=== PATIENT | male | born 2000 | race Two or more races ===

== ENCOUNTER 2024-03-10 17:23 | Inpatient (IN) | payer MEDICAID ==
[~2024-03-10] VITALS: Ht 172.7 cm; Wt 61.3 kg
[2024-03-10] MEDS ORDERED: PALI39DI IM (17:33)
[2024-03-10] MEDS ORDERED: PALI1.5T7 PO (17:33)
[2024-03-10] MEDS ORDERED: RISP0.5T80 PO (17:33)
[2024-03-10] MEDS ORDERED: OXCA300T70 PO (17:33)
[2024-03-10] MEDS ORDERED: MIRT-89 PO (17:33)
[2024-03-10 18:30] LABS: BASOPHILS % (AUTO) 0.4 % (0.0-2.0); EOSINOPHILS % (AUTO) 0.6 % (1.0-6.0); HEMATOCRIT 45.2 % (41-53); HEMOGLOBIN 14.9 g/dL (13.5-17.5); LYMPHOCYTES # (AUTO) 2.1 K/uL (1.0-4.8); MEAN CORPUSCULAR VOLUME 91 fL (80-100); MONOCYTES # (AUTO) 0.7 K/uL (0.1-1.0); MONOCYTES % (AUTO) 8.8 % (2.0-9.0); NEUTROPHILS # (AUTO) 4.9 K/uL (1.8-7.7); NEUTROPHILS % (AUTO) 63.2 % (40.0-70.0); PLATELET COUNT (AUTO) 168 K/uL (150-450); RED BLOOD CELL COUNT(AUTO) 4.97 MIL/uL (4.50-5.90); RED CELL DISTRIBUTION WIDTH 13.5 % (11.5-14.5); WHITE BLOOD COUNT (AUTO) 7.8 K/uL (4.5-11.0)
[2024-03-10 18:39] LABS: ALCOHOL, URINE DRUG SCREEN NEGATIVE (NEGATIVE); AMPHET/METH SCREEN,URINE NEGATIVE (NEGATIVE); BARBITURATE SCREEN, URINE NEGATIVE (NEGATIVE); BENZODIAZEPINES SCREEN,URINE NEGATIVE (NEGATIVE); CANNABINOID SCREEN,URINE POSITIVE (NEGATIVE); COCAINE SCREEN,URINE NEGATIVE (NEGATIVE); METHADONE SCREEN, URINE NEGATIVE (NEGATIVE); OPIATE SCREEN,URINE NEGATIVE (NEGATIVE); PHENCYCLIDINE SCREEN,URINE NEGATIVE (NEGATIVE)
[2024-03-10 18:42] LABS: ANION GAP 12 mmol/L (8-16); CALCIUM, TOTAL 8.9 mg/dL (8.8-10.5); CARBON DIOXIDE 26 mmol/L (22-29); CHLORIDE 103 mmol/L (98-107); GLOMERULAR FILTR. RATE CALC > 60 mL/min (>60); GLUCOSE,RANDOM 89 mg/dL (70-110); POTASSIUM 3.9 mmol/L (3.5-5.1); SODIUM SERUM 141 mmol/L (136-145); UREA NITROGEN, BLOOD 13 mg/dL (7-18)
[2024-03-10 18:45] LABS: ALCOHOL, BLOOD (SERUM) < 3 mg/dL (0-10)
[2024-03-11 04:09] LABS: COVID AG,FIA SOURCE NASAL SWAB
[2024-03-11 04:44] LABS: SARS-COV2 (COVID) ANTIGEN,FIA Negative (Negative)
[2024-03-11] MEDS ORDERED: LORA-1001 PO (06:59)
[2024-03-11] MEDS: BENZONATATE 100 MG CAPSULE PO ONE (09:29)
[2024-03-11] MEDS: NICOTINE 7 MG/24 HOUR PATCH TD ONE (16:20)
[2024-03-11] MEDS: LORazepam 2 MG TABLET PO PRN (16:28)
[2024-03-11 18:18] VITALS: O2SAT 98
[2024-03-12 02:32] VITALS: BP 116/62; PULSE 72; RESP 18; TEMP 97.8
[2024-03-12 08:00] VITALS: BP 120/59; PULSE 100; RESP 18; TEMP 98
[2024-03-12] MEDS ORDERED: BACITRACIN 28 GM OINTMENT TP PRN (09:15)
[2024-03-12] MEDS ORDERED: PETROLATUM,WHITE 28 GM JELLY TP PRN (09:15)
[2024-03-12] MEDS ORDERED: OMEPRAZOLE 20 MG CAPSULE PO PRN (09:15)
[2024-03-12] MEDS ORDERED: LOPERAMIDE HCL 2 MG CAPSULE PO PRN (09:15)
[2024-03-12] MEDS ORDERED: ALBUTEROL SULFATE HFA 90 MCG/PUFF 8 GM INHALER IH PRN (09:15)
[2024-03-12] MEDS ORDERED: ACETAMINOPHEN 325 MG TABLET PO PRN (09:15)
[2024-03-12] MEDS ORDERED: IBUPROFEN 600 MG TABLET PO PRN (09:15)
[2024-03-12] MEDS ORDERED: MAG HYDROX/ALUMINUM HYD/SIMETH ES 30 ML SUSPENSION UDCUP PO PRN (09:15)
[2024-03-12] MEDS ORDERED: CloNIDine HCL 0.1 MG TABLET PO PRN (09:15)
[2024-03-12] MEDS ORDERED: MAGNESIUM HYDROXIDE SUSPENSION 30 ML UDCUP PO PRN (09:15)
[2024-03-12] MEDS ORDERED: ONDANSETRON 4 MG TABLET PO PRN (09:15)
[2024-03-12] MEDS ORDERED: BENZOCAINE/MENTHOL LOZENGE PO PRN (09:15)
[2024-03-12] MEDS ORDERED: DOCUSATE SODIUM 100 MG CAPSULE PO PRN (09:15)
[2024-03-12] MEDS: NICOTINE 21 MG/24 HOUR PATCH TD PRN (10:27)
[2024-03-12] MEDS: HALOPERIDOL 5 MG TABLET PO PRN (12:24)
[2024-03-12 20:07] VITALS: BP 133/75; PULSE 98; RESP 18; TEMP 97.8; O2SAT 98
[2024-03-13 08:15] VITALS: BP 143/87; PULSE 87; RESP 18; TEMP 97.7; O2SAT 98
[2024-03-13] MEDS: PALIPERIDONE 6 MG ER TABLET PO SCH (20:04)
[2024-03-13] MEDS: ZOLPIDEM TARTRATE 10 MG TABLET PO PRN (21:23)
[2024-03-14 08:15] VITALS: BP 111/60; PULSE 97; RESP 17; TEMP 97.6; O2SAT 97
[2024-03-14 08:50] LABS: FREE T4 (FREE THYROXINE) 1.15 ng/dL (0.76-1.46); THYROID STIMULATING HORMONE 2.06 uIU/mL (0.36-3.74)
[2024-03-14 18:30] VITALS: BP 136/72; PULSE 90; RESP 16; TEMP 97.8; O2SAT 98
[2024-03-14 20:50] VITALS: BP 133/83; PULSE 83; RESP 18; TEMP 97.7; O2SAT 98
[2024-03-15] MEDS: PALIPERIDONE PALMITATE 234 MG/1.5 ML SYRINGE IM ONE (06:31)
[2024-03-15 08:01] VITALS: BP 113/70; PULSE 92; RESP 18; TEMP 97.8; O2SAT 97
[2024-03-15] MEDS: LORazepam 2 MG/ML VIAL IM ONE (18:22)
[2024-03-15] MEDS: DiphenhydrAMINE HCL 50 MG/ML VIAL IM ONE (18:22)
[2024-03-15] MEDS: HALOPERIDOL LACTATE 5 MG/ML VIAL IM ONE (18:23)
[2024-03-15 20:20] VITALS: BP 121/74; PULSE 88; RESP 18; TEMP 97.6
[2024-03-16 11:42] VITALS: BP 120/72; PULSE 68; RESP 16; TEMP 97.5; O2SAT 100
[2024-03-16 20:00] VITALS: BP 129/83; PULSE 84; RESP 16; TEMP 97.3; O2SAT 100
[2024-03-16] MEDS: PALIPERIDONE 9 MG ER TABLET PO SCH (21:10)
[2024-03-17 08:04] VITALS: BP 128/68; PULSE 91; RESP 16; TEMP 97.8; O2SAT 98
[2024-03-17] MEDS ORDERED: PALI9TAB15 PO (17:29)
== END 2024-03-17 19:06 | disposition home or self-care (01) | DRG 750 ==
LOC: EMS 17:23 → EDBEDREQSVC 03-11 02:32 → B3A 03-12 00:09
PROVIDERS: ADMIT Psychiatry & Neurology Psychiatry; ATTEND Psychiatry & Neurology Psychiatry
DX: F20.0 Paranoid schizophrenia (principal); F12.90 Cannabis use, unspecified, uncomplicated; F14.10 Cocaine abuse, uncomplicated; Z20.822 Contact with and (suspected) exposure to COVID-19; F32.A Depression, unspecified; K59.00 Constipation, unspecified; G47.00 Insomnia, unspecified; Z87.891 Personal history of nicotine dependence
CPT/HCPCS: 80048; 80061; 80307; 84439; 84443; 85025; 87481; 99285; G0480; J1200; J1630; J2060; 36415-L1; 36415-TC; J2426; Z7502; Z7610

== ENCOUNTER 2024-04-06 09:07 | Inpatient (IN) | payer MEDICAID ==
[~2024-04-06] VITALS: Ht 172.7 cm; Wt 71.3 kg
[~2024-04-06 09:07] MED LIST: PALI9TAB15 PO
[2024-04-06] MEDS ORDERED: ZOLPIDEM TARTRATE 10 MG TABLET PO PRN (10:00)
[2024-04-06] MEDS ORDERED: LORazepam 2 MG/ML VIAL ONE (10:23)
[2024-04-06] MEDS ORDERED: HALOPERIDOL LACTATE 5 MG/ML VIAL ONE (10:24)
[2024-04-06] MEDS ORDERED: DiphenhydrAMINE HCL 50 MG/ML VIAL ONE (10:24)
[2024-04-06 10:50] LABS: GLUCOMETER DEV NAME(LOC) POC.BV; POC SARS-COV2 AG, FIA NEGATIVE (NEGATIVE)
[2024-04-06] MEDS ORDERED: LITH300C3 PO (10:58)
[2024-04-06] MEDS ORDERED: DIVA-112 PO (10:58)
[2024-04-06 11:10] VITALS: BP 108/74; PULSE 85; RESP 17; TEMP 98.4; O2SAT 96
[2024-04-06] MEDS: LORazepam 2 MG/ML VIAL IM ONE (11:13)
[2024-04-06] MEDS: DiphenhydrAMINE HCL 50 MG/ML VIAL IM ONE (11:16)
[2024-04-06] MEDS: HALOPERIDOL LACTATE 5 MG/ML VIAL IM ONE (11:16)
[2024-04-06 14:10] VITALS: RESP 18
[2024-04-06] MEDS: NICOTINE 14 MG/24 HOUR PATCH TD SCH (20:38)
[2024-04-07] MEDS: LORazepam 2 MG TABLET PO PRN (06:48)
[2024-04-07 08:48] VITALS: BP 110/72; PULSE 92; RESP 17; TEMP 97.7; O2SAT 100
[2024-04-07 09:09] LABS: BASOPHILS % (AUTO) 0.5 % (0.0-2.0); HEMATOCRIT 44.2 % (41-53); HEMOGLOBIN 14.9 g/dL (13.5-17.5); LYMPHOCYTES # (AUTO) 1.9 K/uL (1.0-4.8); LYMPHOCYTES % (AUTO) 29.8 % (22.0-44.0); MEAN CORPUSCULAR HEMOGLOBIN 30.8 pg (26.0-34.0); MEAN CORPUSCULAR HGB CONC 33.7 G/dL (31.0-37.0); MEAN CORPUSCULAR VOLUME 91 fL (80-100); MONOCYTES # (AUTO) 0.5 K/uL (0.1-1.0); MONOCYTES % (AUTO) 7.9 % (2.0-9.0); NEUTROPHILS # (AUTO) 3.8 K/uL (1.8-7.7); NEUTROPHILS % (AUTO) 59.8 % (40.0-70.0); PLATELET COUNT (AUTO) 177 K/uL (150-450); RED BLOOD CELL COUNT(AUTO) 4.84 MIL/uL (4.50-5.90); RED CELL DISTRIBUTION WIDTH 13.4 % (11.5-14.5); WHITE BLOOD COUNT (AUTO) 6.4 K/uL (4.5-11.0)
[2024-04-07 09:24] LABS: HEMOGLOBIN A1C 5.1 % (3.8-5.6)
[2024-04-07 09:27] LABS: LITHIUM 0.22 mmol/L (0.60-1.20)
[2024-04-07 09:28] LABS: ALCOHOL, BLOOD (SERUM) < 3 mg/dL (0-10)
[2024-04-07 09:42] LABS: ALANINE AMINOTRANSFERASE 24 U/L (12-78); ALBUMIN 3.8 g/dL (3.4-5.0); ALKALINE PHOSPHATASE 52 U/L (46-116); ANION GAP 4 mmol/L (8-16); ASPARTATE AMINOTRANSFERASE 47 U/L (15-37); BILIRUBIN,TOTAL 0.5 mg/dL (0.1-1.0); CALCIUM, TOTAL 8.5 mg/dL (8.8-10.5); CARBON DIOXIDE 27 mmol/L (22-29); CHLORIDE 109 mmol/L (98-107); CHOL/HDL RATIO 2.4 (4.2-7.3); CHOLESTEROL 139 mg/dL (131-200); CREATININE 0.86 mg/dL (0.60-1.30); GLOMERULAR FILTR. RATE CALC > 60 mL/min (>60); GLUCOSE,RANDOM 99 mg/dL (70-110); HDL CHOLESTEROL 57 mg/dL (40-60); LDL CHOL (CALC.) 65 mg/dL (0-130); POTASSIUM 3.9 mmol/L (3.5-5.1); SODIUM SERUM 140 mmol/L (136-145); THYROID STIMULATING HORMONE 3.14 uIU/mL (0.36-3.74); TOTAL PROTEIN, SERUM 7.2 g/dL (6.4-8.2); TRIGLYCERIDES 84 mg/dL (15-150); UREA NITROGEN, BLOOD 10 mg/dL (7-18); VALPROIC ACID 34 mcg/mL (50-100)
[2024-04-07 10:37] LABS: APPEARANCE,URINE HAZY (CLEAR); BILIRUBIN,URINE NEGATIVE (NEGATIVE); COLOR,URINE LIGHT YELLOW (YELLOW); GLUCOSE, URINE (UA) NEGATIVE (NEGATIVE); KETONES,URINE NEGATIVE (NEGATIVE); LEUKOCYTE ESTERASE ,URINE NEGATIVE (NEGATIVE); NITRATE,URINE NEGATIVE (NEGATIVE); OCCULT BLOOD,URINE NEGATIVE (NEGATIVE); PH,URINE 7.5 (5.0-8.0); PH,URINE DRUG SCREEN 7.5 (5.0-8.0); PROTEIN,URINE NEGATIVE (NEGATIVE); SPECIFIC GRAVITIY, URINE 1.015 (1.003-1.030); UROBILINOGEN,URINE <=1.0 mg/dL (<=1.0)
[2024-04-07 10:44] LABS: AMPHET/METH SCREEN,URINE NEGATIVE (NEGATIVE); BARBITURATE SCREEN, URINE NEGATIVE (NEGATIVE); BENZODIAZEPINES SCREEN,URINE NEGATIVE (NEGATIVE); CANNABINOID SCREEN,URINE POSITIVE (NEGATIVE); COCAINE SCREEN,URINE NEGATIVE (NEGATIVE); METHADONE SCREEN, URINE NEGATIVE (NEGATIVE); OPIATE SCREEN,URINE NEGATIVE (NEGATIVE); PHENCYCLIDINE SCREEN,URINE NEGATIVE (NEGATIVE)
[2024-04-07 10:49] LABS: ALCOHOL, URINE DRUG SCREEN NEGATIVE (NEGATIVE)
[2024-04-07] MEDS: PALIPERIDONE PALMITATE 234 MG/1.5 ML SYRINGE IM ONE (12:24)
[2024-04-07] MEDS ORDERED: LOPERAMIDE HCL 2 MG CAPSULE PO PRN (15:00)
[2024-04-07] MEDS ORDERED: MAGNESIUM HYDROXIDE SUSPENSION 30 ML UDCUP PO PRN (15:00)
[2024-04-07] MEDS ORDERED: PETROLATUM,WHITE 28 GM JELLY TP PRN (15:00)
[2024-04-07] MEDS ORDERED: DOCUSATE SODIUM 100 MG CAPSULE PO PRN (15:00)
[2024-04-07] MEDS ORDERED: ONDANSETRON 4 MG TABLET PO PRN (15:00)
[2024-04-07] MEDS ORDERED: OMEPRAZOLE 20 MG CAPSULE PO PRN (15:00)
[2024-04-07] MEDS ORDERED: CloNIDine HCL 0.1 MG TABLET PO PRN (15:00)
[2024-04-07] MEDS ORDERED: BACITRACIN 28 GM OINTMENT TP PRN (15:00)
[2024-04-07] MEDS ORDERED: BENZOCAINE/MENTHOL LOZENGE PO PRN (15:00)
[2024-04-07] MEDS ORDERED: ACETAMINOPHEN 325 MG TABLET PO PRN (15:00)
[2024-04-07] MEDS ORDERED: ALBUTEROL SULFATE HFA 90 MCG/PUFF 8 GM INHALER IH PRN (15:00)
[2024-04-07] MEDS ORDERED: MAG HYDROX/ALUMINUM HYD/SIMETH ES 30 ML SUSPENSION UDCUP PO PRN (15:00)
[2024-04-07] MEDS: HALOPERIDOL 5 MG TABLET PO PRN (17:45)
[2024-04-07 21:05] VITALS: BP 112/75; PULSE 86; RESP 16; TEMP 97.9; O2SAT 98
[2024-04-08] MEDS ORDERED: LEVOTHYROXINE SODIUM 50 MCG TABLET PO SCH (06:30)
[2024-04-08] MEDS ORDERED: DOCUSATE SODIUM 100 MG CAPSULE PO SCH (09:00)
[2024-04-08] MEDS ORDERED: LevETIRAcetam 500 MG TABLET PO SCH (09:00)
[2024-04-08] MEDS ORDERED: POLYETHYLENE GLYCOL 3350 17 GM PACKET PO SCH (09:00)
[2024-04-08 20:00] VITALS: BP 139/62; PULSE 96; RESP 16; TEMP 98; O2SAT 98
[2024-04-09 07:58] VITALS: BP 113/61; PULSE 70; RESP 18; TEMP 97.7; O2SAT 99
[2024-04-09 08:28] VITALS: BP 113/61; PULSE 70; RESP 18; TEMP 97.7; O2SAT 99
[2024-04-09] MEDS: IBUPROFEN 600 MG TABLET PO PRN (13:10)
== END 2024-04-09 17:24 | disposition home or self-care (01) | DRG 750 ==
LOC: B3A 10:11
PROVIDERS: ADMIT Psychiatry & Neurology Psychiatry; ATTEND Psychiatry & Neurology Psychiatry
DX: F20.9 Schizophrenia, unspecified (principal); F12.90 Cannabis use, unspecified, uncomplicated; F14.10 Cocaine abuse, uncomplicated; F41.9 Anxiety disorder, unspecified; G47.00 Insomnia, unspecified; F32.A Depression, unspecified; K59.00 Constipation, unspecified
CPT/HCPCS: 80053; 80061; 80164; 80178; 80307; 81003; 83036; 84439; 84443; 85025; 86592; 87081; G0480; J1200; J1630; J2060